=== PATIENT | female | born 1990 | race Caucasian/White ===

== ENCOUNTER 2019-09-06 03:52 | Emergency (ER) | payer MEDICAID, OTHER ==
[~2019-09-06] VITALS: Ht 170 cm; Wt 86.3 kg
[2019-09-06] MEDS ORDERED: LACTATED RINGERS 1,000 ML IV ONE ×3 (04:08)
[2019-09-06 04:22] LABS: BASOPHILS % (AUTO) 0 % (0-10); EOSINOPHILS % (AUTO) 0 % (0-10); HEMATOCRIT 40 % (35-52); HEMOGLOBIN 13.8 G/DL (11.5-16.0); LYMPHOCYTES # (AUTO) 3.7 X 10^3 (1.0-4.0); LYMPHOCYTES % (AUTO) 43 % (12-44); MEAN CORPUSCULAR HEMOGLOBIN 31 PG (25-34); MEAN CORPUSCULAR HGB CONC 35 G/DL (32-36); MEAN CORPUSCULAR VOLUME 89 FL (80-99); MEAN PLATELET VOLUME 9.2 FL (7.4-10.4); MONOCYTES # (AUTO) 0.8 X 10^3 (0.0-1.0); MONOCYTES % (AUTO) 9 % (0-12); NEUTROPHILS % (AUTO) 47 % (42-75); PLATELET COUNT 301 10^3/uL (130-400); WHITE BLOOD COUNT 8.6 10^3/uL (4.3-11.0)
[2019-09-06 04:30] LABS: INR 0.8 (0.8-1.4); PROTHROMBIN TIME PATIENT 11.4 SEC (12.2-14.7)
[2019-09-06 04:36] LABS: ALANINE AMINOTRANSFERASE 33 U/L (0-55); ALBUMIN 4.4 GM/DL (3.2-4.5); ALKALINE PHOSPHATASE 83 U/L (40-136); AMYLASE 40 U/L (25-125); BILIRUBIN,TOTAL 0.2 MG/DL (0.1-1.0); BUN/CREATININE RATIO 14; CALCIUM 9.8 MG/DL (8.5-10.1); CARBON DIOXIDE 20 MMOL/L (21-32); CHLORIDE 109 MMOL/L (98-107); CREATININE SERUM 1.09 MG/DL (0.60-1.30); GFR ESTIMATED 60; GLUCOSE 104 MG/DL (70-105); LIPASE 28 U/L (8-78); MAGNESIUM 2.1 MG/DL (1.6-2.4); POTASSIUM 3.5 MMOL/L (3.6-5.0); SODIUM 144 MMOL/L (135-145); TOTAL PROTEIN 8.1 GM/DL (6.4-8.2)
[2019-09-06 04:41] LABS: ACETAMINOPHEN < 10 UG/ML (10-30)
--- NOTE | 2019-09-06 04:47 | ED Psychosocial ---
General Chief Complaint: Substance Abuse Stated Complaint: DRUNK Nursing Triage Note: Patient brought to ER room 5 by [facility]. Patient is awake and alert, crying loudly. Patient tells staff "I had way too much to drink tonight and I have been drinking doubles of coke and valentino." EMS advised they were called for patient hyperventilating, complaining of feeling dizzy and acting like she was sleep walking. Patient states she is from [place] but was in [place] with her friend Sherwin. Source: patient, EMS Exam Limitations: intoxication History of Present Illness Date Seen by Provider: Sep 06, 2019 Time Seen by Provider: 03:55 Initial Comments PT ARRIVES VIA EMS COMPLETELY NUDE, COVERED IN A BLANKET, WITH NONE OF HER BELONGINGS EMS WAS CALLED FOR PT "ACTING LIKE SHE WAS HYPERVENTILATING AND SLEEPWALKING" AND C/O BEING DIZZY PT HAS HAD UNKNOWN AMOUNT OF ETOH TO DRINK TONIGHT--PT STATES SHE HAD "2 DOUBLES OF VALENTINO AND COKE" TONIGHT PT WAS AT [employer] THIS EVENING AND THEN WAS AT A MALE FRIEND'S HOUSE. PT STATES HIS NAME IS SHERWIN. THE MALE FRIEND CALLED EMS DUE TO PT'S BEHAVIOR, THIS FRIEND DOES NOT ACCOMPANY PT TO ER. PT STATES SHE IS FROM [place] AND THIS FRIEND PICKED HER UP IN [place] AND BROUGHT HER TO [place]. PT DENIES ANY DRUG USE PT STATES SHE DRINKS "EVERY 2 WEEKS" PT BLUBBERING / CRYING AND HYPERVENTILATING ON ARRIVAL WAILING "MY DAD AND MY MOM NEVER CARED ABOUT ME" PT STATES "I WORK SO LIFE STRESSES ME OUT" PT STATES SHE HAS A SON, BORN IN 2014, WHO LIVES WITH GRANDPARENTS, WITH PT STATING "BECAUSE I HAVE TO WORK DURING THE WEEK" STATES SHE WORKS AT [employer] AND HAS TO BE THERE TOMORROW AT 1:00. STATES "I JUST DON'T WANT TO LOSE MY JOB--IT'S WHAT KEEPS ME SANE" "MY DAD'S AN ALCOHOLIC AND I DON'T WANT TO END UP LIKE MY DAD" THEN PROCEEDS TO WAIL VERY LOUDLY SPEECH IS CLEAR PCP: [facility]-DR. TOYA MORRELL Allergies and Home Medications Allergies Coded Allergies: Sulfa (Sulfonamide Antibiotics) (Verified Allergy, Unknown, 09/06/19) erythromycin base (Verified Allergy, Unknown, 09/06/19) sulfisoxazole (Verified Allergy, Unknown, 09/06/19) Review of Systems Constitutional: dizziness, other (PT INTOXICATED) Gastrointestinal: nausea (EMS GAVE ZOFRAN 4 MG. NO C/O NAUSEA NOW. ) Psychiatric/Neurological: See HPI Past [id number] Hx Patient Social History Alcohol Use: Regular Use ("EVERY 2 WEEKS" --VERY HEAVY AT TIME) Recreational Drug Use: Yes ("SMOKED METH 1 TIME IN 2014" PER PT 09/06/19) Drug of Choice: "SMOKED METH 1 TIME IN 2014" PER PT ON 09/06/19 Smoking Status: Current Everyday Smoker Type Used: Electronic/Vapor 2nd Hand Smoke Exposure: Yes Recent Foreign Travel: No Contact w/Someone Who Travel: No Recent Infectious Disease Expo: No Recent Hopitalizations: No Physical Abuse: No Sexual Abuse: No Mistreated: No Fear: No Seasonal Allergies Seasonal Allergies: No Past Medical History Surgeries: Yes (LEFT KNEE SURGERY ) Orthopedic Respiratory: No Cardiac: No Neurological: Yes (SEIZURES AT AGE 4. NOT TAKING SEIZURE MEDICATION) Seizure Disorder Female Reproductive Disorders: Denies Genitourinary: No Gastrointestinal: No Musculoskeletal: Yes (LEFT KNEE SURGERY) Endocrine: No HEENT: No Cancer: No Psychosocial: Yes Anxiety Integumentary: No Blood Disorders: No Physical Exam Vital Signs - First Documented 09/06/19 03:55 Temp 36.2 Pulse 90 Resp 30 B/P (MAP) 119/95 (103) Pulse Ox 100 O2 Delivery Room Air Capillary Refill : Less Than 3 Seconds Height, Weight, BMI Height: '" Weight: lbs. oz. kg; 29.00 BMI Method: General Appearance: no apparent distress, obese, other (BEHAVIOR ABOVE--CRYING, WAILING, BLUBBERING. SPEECH CLEAR. HYPERVENTILATING. PT IS COMPLETELY NUDE, WRAPPED IN A BLANKET, WITH NO BELONGINGS. 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 tested, no motor/sensory deficits, alert, oriented x 3 Appearance/Memory: no memory impairment, disheveled Thoughts/Hallucinations: no apparent hallucination Skin: normal color, warm/dry Progress/Results/Core Measures Results/Orders Lab Results Laboratory Tests Test 09/06/19 04:06 09/06/19 04:47 Range/Units White Blood Count 8.6 4.3-11.0 10^3/uL Red Blood Count 4.44 4.35-5.85 10^6/uL Hemoglobin 13.8 11.5-16.0 G/DL Hematocrit 40 35-52 % Mean Corpuscular Volume 89 80-99 FL Mean Corpuscular Hemoglobin 31 25-34 PG Mean Corpuscular Hemoglobin Concent 35 32-36 G/DL Red Cell Distribution Width 12.0 10.0-14.5 % Platelet Count 301 130-400 10^3/uL Mean Platelet Volume 9.2 7.4-10.4 FL Neutrophils (%) (Auto) 47 42-75 % Lymphocytes (%) (Auto) 43 12-44 % Monocytes (%) (Auto) 9 0-12 % Eosinophils (%) (Auto) 0 0-10 % Basophils (%) (Auto) 0 0-10 % Neutrophils # (Auto) 4.0 1.8-7.8 X 10^3 Lymphocytes # (Auto) 3.7 1.0-4.0 X 10^3 Monocytes # (Auto) 0.8 0.0-1.0 X 10^3 Eosinophils # (Auto) 0.0 0.0-0.3 10^3/uL Basophils # (Auto) 0.0 0.0-0.1 10^3/uL Prothrombin Time 11.4 L 12.2-14.7 SEC INR Comment 0.8 0.8-1.4 Activated Partial Thromboplast Time 27 24-35 SEC Sodium Level 144 135-145 MMOL/L Potassium Level 3.5 L 3.6-5.0 MMOL/L Chloride Level 109 H 98-107 MMOL/L Carbon Dioxide Level 20 L 21-32 MMOL/L Anion Gap 15 H 5-14 MMOL/L Blood Urea Nitrogen 15 7-18 MG/DL Creatinine 1.09 0.60-1.30 MG/DL Estimat Glomerular Filtration Rate 60 BUN/Creatinine Ratio 14 Glucose Level 104 70-105 MG/DL Calcium Level 9.8 8.5-10.1 MG/DL Corrected Calcium 9.5 8.5-10.1 MG/DL Magnesium Level 2.1 1.6-2.4 MG/DL Total Bilirubin 0.2 0.1-1.0 MG/DL Aspartate Amino Transf (AST/SGOT) 24 5-34 U/L Alanine Aminotransferase (ALT/SGPT) 33 0-55 U/L Alkaline Phosphatase 83 40-136 U/L Total Protein 8.1 6.4-8.2 GM/DL Albumin 4.4 3.2-4.5 GM/DL Amylase Level 40 25-125 U/L Lipase 28 8-78 U/L Serum Test, Qualitative NEGATIVE NEGATIVE Acetaminophen Level < 10 L 10-30 UG/ML Urine Color YELLOW Urine Clarity CLEAR Urine pH 6 5-9 Urine Specific [place] 1.010 L 1.016-1.022 Urine Protein NEGATIVE NEGATIVE Urine Glucose (UA) NEGATIVE NEGATIVE Urine Ketones 1+ H NEGATIVE Urine Nitrite NEGATIVE NEGATIVE Urine Bilirubin NEGATIVE NEGATIVE Urine Urobilinogen NORMAL NORMAL MG/DL Urine Leukocyte Esterase NEGATIVE NEGATIVE Urine RBC (Auto) NEGATIVE NEGATIVE Urine RBC NONE /HPF Urine WBC NONE /HPF Urine Squamous Epithelial Cells 0-2 /HPF Urine Crystals NONE /LPF Urine Bacteria TRACE /HPF Urine Casts NONE /LPF Urine Mucus NEGATIVE /LPF Urine Culture Indicated NO Urine Opiates Screen NEGATIVE NEGATIVE Urine Oxycodone Screen NEGATIVE NEGATIVE Urine Methadone Screen NEGATIVE NEGATIVE Urine Propoxyphene Screen NEGATIVE NEGATIVE Urine Barbiturates Screen NEGATIVE NEGATIVE Ur Tricyclic Antidepressants Screen NEGATIVE NEGATIVE Urine Phencyclidine Screen NEGATIVE NEGATIVE Urine Amphetamines Screen NEGATIVE NEGATIVE Urine Methamphetamines Screen NEGATIVE NEGATIVE Urine Benzodiazepines Screen NEGATIVE NEGATIVE Urine Cocaine Screen NEGATIVE NEGATIVE Urine Cannabinoids Screen NEGATIVE NEGATIVE My Orders Orders - ISHMAEL MORENO DO Ed Iv/Invasive Line Start (09/06/19 04:08) Monitor-Rhythm Ecg Trace Only (09/06/19 04:08) Acetaminophen (09/06/19 04:08) Amylase (09/06/19 04:08) Cbc With Automated Diff (09/06/19 04:08) Comprehensive Metabolic Panel (09/06/19 04:08) Drug Screen Stat (Urine) (09/06/19 04:08) Hcg,Qualitative Serum (09/06/19 04:08) Lipase (09/06/19 04:08) Magnesium (09/06/19 04:08) Protime With Inr (09/06/19 04:08) Partial Thromboplastin Time (09/06/19 04:08) Ua Culture If Indicated (09/06/19 04:08) Ed Iv/Invasive Line Start (09/06/19 04:08) Lactated Ringers (Lr 1000 Ml Iv Solution (09/06/19 04:08) Ed Iv/Invasive Line Start (09/06/19 04:08) Lactated Ringers (Lr 1000 Ml Iv Solution (09/06/19 04:08) Ed Iv/Invasive Line Start (09/06/19 04:08) Lactated Ringers (Lr 1000 Ml Iv Solution (09/06/19 04:08) Alcohol (09/06/19 05:18) Salicylate (09/06/19 05:18) Medications Given in ED Current Medications Medications Dose Ordered Sig/Kael Route Start Time Stop Time Status Last Admin Dose Admin Lactated Ringer's 1,000 ml @ 0 mls/hr Q0M ONCE IV 09/06/19 04:08 09/06/19 04:11 DC 09/06/19 04:21 0 MLS/HR Lactated Ringer's 1,000 ml @ 0 mls/hr Q0M ONCE IV 09/06/19 04:08 09/06/19 04:11 DC 09/06/19 04:21 0 MLS/HR Lactated Ringer's 1,000 ml @ 0 mls/hr Q0M ONCE IV 09/06/19 04:08 09/06/19 04:11 DC 09/06/19 04:22 0 MLS/HR Vital Signs/I&O 09/06/19 03:55 Temp 36.2 Pulse 90 Resp 30 B/P (MAP) 119/95 (103) Pulse Ox 100 O2 Delivery Room Air Blood Pressure Mean: 103 Progress Progress Note : Progress Note NO DETERIORATION IN PT'S CONDITION DURING ER STAY PROOFER ARRIVES, WITH PT'S CLOTHES AND BELONGINGS, AND HER PHONE. PT ATTEMPTING TO CONTACT SOMEONE TO PICK HER UP. MALE FRIEND LATER ARRIVES. PT IS NOW CALM AND NO LONGER CRYING OR HYPERVENTILATING, AND IS ACTING APPROPRIATELY. SPEECH CLEAR AND GAIT STEADY AT DISMISSAL Departure Impression Primary Impression: Alcohol intoxication Disposition: 01 HOME, SELF-CARE Condition: Improved Departure-Patient Inst. Referrals: ANALY PITTMAN DO Patient Instructions: ALCOHOL AND SUBSTANCE ABUSE, Alcohol Abuse and Alcoholism (DC) Add. Discharge Instructions: LOTS OF WATER AND GATORADE NO ALCOHOL!!! FOLLOW UP WITH YOUR DR NEEDED All discharge instructions reviewed with patient and/or family. Voiced understanding. ISHMAEL MORENO DO Sep 06, 2019 04:47
[2019-09-06 04:54] LABS: BILIRUBIN,URINE NEGATIVE (NEGATIVE); CLARITY,URINE CLEAR; COLOR,URINE YELLOW; GLUCOSE, URINE (UA) NEGATIVE (NEGATIVE); KETONES,URINE 1+ (NEGATIVE); LEUKOCYTE ESTERASE ,URINE NEGATIVE (NEGATIVE); NITRITE,URINE NEGATIVE (NEGATIVE); PH,URINE 6 (5-9); PROTEIN,URINE NEGATIVE (NEGATIVE); UROBILINOGEN,URINE NORMAL (NORMAL)
[2019-09-06 05:08] LABS: AMPHETAMINE SCREEN, URINE NEGATIVE (NEGATIVE); BACTERIA,URINE TRACE /HPF; BARBITURATE SCREEN URINE NEGATIVE (NEGATIVE); BENZODIAZEPINES SCREEN URINE NEGATIVE (NEGATIVE); CANNABINOID SCREEN, URINE NEGATIVE (NEGATIVE); COCAINE SCREEN URINE NEGATIVE (NEGATIVE); METHADONE STAT NEGATIVE (NEGATIVE); METHAMPHETAMINE SCREEN URINE S NEGATIVE (NEGATIVE); OPIATE SCREEN URINE NEGATIVE (NEGATIVE); OXYCODONE STAT NEGATIVE (NEGATIVE); PROPOXYPHENE STAT NEGATIVE (NEGATIVE); SQUAMOUS EPITHELIAL CELL,UR 0-2 /HPF; TRICYCLIC ANTIDEPRESSANTS SCRE NEGATIVE (NEGATIVE)
[2019-09-06 05:37] LABS: SALICYLATE < 5.0 MG/DL (5.0-20.0)
[2019-09-06 06:18] VITALS: BP 100/53
== END 2019-09-06 06:23 | disposition home or self-care (01) ==
LOC: ER 03:55
DX: F10.129 Alcohol abuse with intoxication, unspecified (principal); G40.909 Epilepsy, unspecified, not intractable, without status epilepticus; F41.9 Anxiety disorder, unspecified; F17.290 Nicotine dependence, other tobacco product, uncomplicated; Z88.2 Allergy status to sulfonamides; Z88.1 Allergy status to other antibiotic agents
CPT/HCPCS: 36415; 80053; 80306; 80320; 80329; 81000; 82150; 83690; 83735; 84703; 85025; 85610; 85730; 93041